=== PATIENT | female | born 1955 | race Caucasian/White ===

== ENCOUNTER 2021-11-30 08:18 | Outpatient (CLI) | payer MEDICARE ==
[~2021-11-30] VITALS: Ht 167.7 cm; Wt 76.0 kg
[~2021-11-30 08:18] MED LIST: ALPRAZOLAM XR0.5 MG PO; AMBIEN 10MG10 MG PO; ANSAID100 MG PO; BACTRIM DS 8001 TAB PO; CALCIUM600 MG PO; CEPHALEXIN500 M1 PO; CIPRO 500MG TA500 MG PO; COLACE 100100 MG/CAP PO; DUO-KAPS1 CAP PO; FLURBIPROFEN; OCUVITE1 TA1; PEN-VEE K500 MG PO; PERCOCET 325 MG1 TA2 PO; PHENERGAN 25 TA25 MG PO; RISPERDAL; RISPERDAL3 MG PO; SEROQUEL 2525 MG/TAB PO; SYNTHROID0.05 MG/TA PO; TRAVATAN Z 2.52.5 ML; VITAMIN C500 MG PO; XANAX 0.5MG0.5 MG PO
[2021-11-30 09:07] VITALS: BP 135/85; PULSE 75; TEMP 97.9
[2021-11-30] MEDS ORDERED: FOSAMAX 70MG TA70 MG PO (09:12)
[2021-11-30 09:14] LABS: HEMATOCRIT 40.2 % (37.0-47.0); HEMOGLOBIN 13.7 g/dl (12.5-16.0); MEAN CELL VOLUME 94 fl (80.0-100.0); MEAN CORPUSCULAR HEMOGLOBIN 32 pg (27-31); MEAN CORPUSCULAR HGB CONC 34 g/dl (33.0-37.0); MEAN PLATELET VOLUME 9.5 fl (7.4-10.4); PLATELET COUNT 234 K/mm3 (130-400); RED BLOOD COUNT 4.29 M/mm3 (4.10-5.30); REDCELL DISTRIBUTION WIDTH-CV 12.3 % (11.5-14.5)
[2021-11-30] MEDS ORDERED: ZESTRIL 20MG TA20 MG PO (09:14)
[2021-11-30] MEDS ORDERED: SEROQUEL XR50 MG PO (09:14)
[2021-11-30 09:15] LABS: INR 1.1 (0.8-3.0); PROTHROMBIN TIME 12.2 SECONDS (9.7-12.8)
[2021-11-30] MEDS ORDERED: RISPERDAL3 MG PO (09:15)
[2021-11-30] MEDS ORDERED: ANSAID100 MG PO (09:17)
[2021-11-30] MEDS ORDERED: LEVOXYL0.075 MG PO (09:18)
[2021-11-30] MEDS ORDERED: KLONOPIN 0.5MG0.5 MG PO (09:18)
[2021-11-30 09:19] LABS: CREATININE, serum 1.03 mg/dL (0.57-1.11)
[2021-11-30] MEDS ORDERED: COREG12.5 MG PO (09:19)
[2021-11-30] MEDS ORDERED: SINEQUAN 2525 MG/CAP PO (09:20)
[2021-11-30] MEDS ORDERED: XALATAN EYE DROPS OU (09:20)
[2021-11-30] MEDS ORDERED: EPA FISH OIL1 SGL PO (09:20)
[2021-11-30] MEDS ORDERED: VITAMIN C500 MG PO (09:21)
[2021-11-30] MEDS ORDERED: CALCIUM-MAGNES1 EAC1 PO (09:21)
[2021-11-30] MEDS ORDERED: MULTIVITAMIN FO1 CAP PO (09:21)
[2021-11-30] MEDS ORDERED: VITAMIN B-6100 MG PO (09:22)
[2021-11-30] MEDS ORDERED: NATURAL MAGNES200 MG PO (09:22)
[2021-11-30 10:15] VITALS: BP 131/78; PULSE 73
[2021-11-30 10:30] VITALS: BP 142/77; PULSE 71
[2021-11-30 10:45] VITALS: BP 147/71; PULSE 72
[2021-11-30 11:00] VITALS: BP 149/69; PULSE 72
--- NOTE | 2021-11-30 11:09 | NUR ---
DC instructions reviewed with pt. She expresses understanding. She has tolerated PO fluids without issue, has denied desire for food to this point, stating she will eat at home. She is steady on feet to restroom. IV DC'd, site wrapped with coban. Respirations remain even and unlabored. Pt assisted out to sister's car by wheelchair with belongings.
== END 2021-11-30 11:10 | disposition home or self-care (01) ==
LOC: COL.RAD 08:18
PROVIDERS: Internal Medicine Cardiovascular Disease
DX: I08.0 Rheumatic disorders of both mitral and aortic valves (principal); I71.2 Thoracic aortic aneurysm, without rupture
CPT/HCPCS: J2704; J7120